=== PATIENT | female | born 1935 | race Hispanic/Latino ===

== ENCOUNTER 2020-07-10 09:46 | Inpatient (IN) | payer MEDICARE ==
[~2020-07-10] VITALS: Ht 165.1 cm; Wt 112.0 kg
[2020-07-10] MEDS ORDERED: ONDANSETRON HCL INJ 2MG/ML 2ML 2 MG/ML VIAL IV STA (10:05)
[2020-07-10] MEDS ORDERED: SODIUM CHLORIDE 0.9% 1000ML 1,000 ML IV STA (10:05)
[2020-07-10] MEDS ORDERED: PANTOPRAZOLE 40 MG 10ML VIAL IV STA (10:05)
[2020-07-10] MEDS ORDERED: DILTIAZEM HCL 5 MG/ML 5 ML VIAL IV STA (10:24)
[2020-07-10] MEDS ORDERED: DILTIAZEM HCL VIAL 5 ML ONE (10:28)
[2020-07-10] MEDS ORDERED: AMLODIPINE BESYL5 MG PO (10:32)
[2020-07-10] MEDS ORDERED: VITAMIN D250 MCG PO (10:32)
[2020-07-10] MEDS ORDERED: HYDROCHLOROTHIA25 MG PO (10:32)
[2020-07-10] MEDS ORDERED: ATORVASTATIN CA10 MG PO (10:32)
[2020-07-10] MEDS ORDERED: AMIODARONE HCL 150MG 100 ML IV STA (10:52)
[2020-07-10] MEDS ORDERED: AMIODARONE HCL 360MG 200 ML IV SCH ×2 (11:00)
[2020-07-10 11:11] LABS: BASOPHILS # (AUTO) 0.1 (0.0-0.1); BASOPHILS % 0.9 % (0.0-1.0); EOSINOPHILS # (AUTO) 0.1 (0.0-0.4); EOSINOPHILS % 0.7 % (0.0-6.0); HEMATOCRIT 46.9 % (34.2-44.1); HEMOGLOBIN 13.6 g/dL (12.0-16.0); LYMPHOCYTES # (AUTO) 2.3 (1.0-3.2); LYMPHOCYTES % 22.3 % (18.0-39.1); MEAN CORPUSCULAR HEMOGLOBIN 23.9 pg (28-32); MEAN CORPUSCULAR VOLUME 82.6 fL (81-99); MONOCYTES # (AUTO) 0.8 (0.2-0.8); MONOCYTES % 7.6 % (4.4-11.3); NEUTROPHILS % 67.6 % (38.7-80.0); PLATELET COUNT 232 x10e3/uL (140-360); RED BLOOD COUNT 5.68 x10e6/uL (3.6-5.1); RED CELL DISTRIBUTION WIDTH 22.4 % (11.7-14.4)
[2020-07-10 11:13] LABS: CLARITY,URINE CLEAR (CLEAR); COLOR,URINE YELLOW (YELLOW); LEUKOCYTE ESTERASE ,URINE NEGATIVE (NEGATIVE); NITRITE,URINE NEGATIVE (NEGATIVE); PROTEIN,URINE DIPSTICK 1+ (NEGATIVE)
[2020-07-10 11:14] LABS: KETONES,URINE TRACE (NEGATIVE); URINE UROBILINOGEN 1 mg/dL (0.2 - 1)
[2020-07-10 11:17] LABS: INR 1.14; PROTHROMBIN TIME 15.3 seconds (11.9-14.5)
[2020-07-10 11:18] LABS: PARTIAL THROMBOPLASTIN TIME 30.1 seconds (23.8-35.5)
[2020-07-10 11:27] LABS: BACTERIA,URINE MANY /HPF; EPITHELIAL CELLS,URINE FEW /LPF
[2020-07-10 11:29] LABS: ALBUMIN 2.6 g/dL (3.5-5.0); ALBUMIN/GLOBULIN RATIO 0.6 (0.8-2.0); ANION GAP 17.9 mmol/L (8-16); CALCIUM 8.7 mg/dL (8.4-10.2); CREATININE, SERUM 1.1 mg/dL (0.57-1.11); MAGNESIUM 2.1 MG/DL (1.3-2.1)
[2020-07-10 11:30] LABS: MUCUS,URINE MANY (RARE)
[2020-07-10] MEDS ORDERED: SODIUM CHLORIDE 0.9% 500ML 500 ML IV ONE (11:30)
[2020-07-10] MEDS ORDERED: AMIODARONE 900MG 500 ML IV SCH ×2 (11:30→17:35)
[2020-07-10] MEDS ORDERED: CALCIUM GLUCONATE 10% INJ 4.65 MEQ in SODIUM CHLORIDE 0.9% 50ML 50 ML IV ONE (11:30)
[2020-07-10 11:31] LABS: TRANSITIONAL EPI CELLS,URINE FEW
[2020-07-10 11:32] LABS: POTASSIUM 2.9 mmol/L (3.5-5.1)
[2020-07-10] MEDS ORDERED: POTASSIUM CHLORIDE 20MEQ/15ML UDC PO STA (11:34)
[2020-07-10 11:36] LABS: CREATINE KINASE MB 0.3 ng/mL (0-5.0)
[2020-07-10] MEDS ORDERED: SODIUM CHLORIDE 0.9% 50ML 50 ML ONE (11:48)
[2020-07-10] MEDS ORDERED: IOPAMIDOL 370 MG/ML 200 ML INFUS..BTL INJ ONE (11:48)
[2020-07-10] MEDS ORDERED: KCL 20 MEQ PACKET/ ORAL SOLN PO ONE (12:00)
[2020-07-10] MEDS ORDERED: CEFTRIAXONE SOD 1 GM in SODIUM CHLORIDE 0.9% 50ML 50 ML IV ONE (12:15)
[2020-07-10] MEDS ORDERED: AZITHROMYCIN 500MG/NS 250 ML 250 ML IV ONE (13:00)
[2020-07-10] MEDS ORDERED: DILTIAZEM HCL 30 MG TAB PO ONE (13:00)
[2020-07-10] MEDS ORDERED: DIGOXIN INJ 0.25 MG/ML 2 ML AMP IV ONE (16:15)
[2020-07-10] MEDS ORDERED: KCL 20MEQ/.9 SOD CHL 1,000 ML IV ONE (16:15)
[2020-07-10] MEDS: ENOXAPARIN SODIUM INJ 100 MG/ML SYR SC SCH (16:29)
[2020-07-10 16:42] LABS: THYROID STIMULATING HORMONE 1.866 uIU/mL (0.350-4.940)
[2020-07-10 17:39] VITALS: BP 127/97
[2020-07-10] MEDS: FAMOTIDINE 20 MG/2 ML VIAL IV SCH (17:56)
[2020-07-10 17:58] VITALS: BP 127/97
[2020-07-10 18:00] VITALS: BP 127/97
[2020-07-10] MEDS ORDERED: POTASSIUM CHLORIDE 20 MEQ TAB CR PO ONE (18:00)
[2020-07-10 19:28] LABS: CREATINE KINASE MB 0.4 ng/mL (0-5.0)
[2020-07-10 20:26] VITALS: BP 132/77
[2020-07-10 22:53] VITALS: BP 132/77
[2020-07-10] MEDS ORDERED: ACETAMINOPHEN 325 MG TAB PO PRN (23:00)
[2020-07-10] MEDS ORDERED: ONDANSETRON HCL INJ 2MG/ML 2ML 2 MG/ML VIAL IV PRN (23:00)
[2020-07-10] MEDS ORDERED: BENZONATATE 100 MG CAP PO PRN (23:00)
[2020-07-11] VITALS (8 sets, daily range): BP systolic 113–131; BP diastolic 63–90
[2020-07-11 00:57] LABS: CREATINE KINASE MB 0.5 ng/mL (0-5.0)
[2020-07-11 05:08] LABS: BASOPHILS # (AUTO) 0.1 (0.0-0.1); BASOPHILS % 0.9 % (0.0-1.0); EOSINOPHILS # (AUTO) 0.1 (0.0-0.4); EOSINOPHILS % 1.8 % (0.0-6.0); HEMATOCRIT 39.2 % (34.2-44.1); LYMPHOCYTES # (AUTO) 0.9 (1.0-3.2); LYMPHOCYTES % 16.8 % (18.0-39.1); MEAN CORPUSCULAR HEMOGLOBIN 24.5 pg (28-32); MEAN CORPUSCULAR HGB CONC 28.1 g/dL (31-35); MEAN CORPUSCULAR VOLUME 87.3 fL (81-99); MONOCYTES # (AUTO) 0.4 (0.2-0.8); NEUTROPHILS # (AUTO) 3.9 (2.1-6.9); NEUTROPHILS % 72.6 % (38.7-80.0); PLATELET COUNT 177 x10e3/uL (140-360); RED BLOOD COUNT 4.49 x10e6/uL (3.6-5.1); RED CELL DISTRIBUTION WIDTH 21.6 % (11.7-14.4)
[2020-07-11 05:50] LABS: ALBUMIN 2.2 g/dL (3.5-5.0); ALBUMIN/GLOBULIN RATIO 0.6 (0.8-2.0); ANION GAP 10.9 mmol/L (8-16); CALCIUM 7.9 mg/dL (8.4-10.2); CHOL/HDL RATIO 2.7 (3.0-3.6); CREATININE, SERUM 0.92 mg/dL (0.57-1.11); POTASSIUM 3.9 mmol/L (3.5-5.1)
[2020-07-11] MEDS: ENOXAPARIN SODIUM INJ 100 MG/ML SYR SC SCH ×2 (05:52→17:28)
[2020-07-11] MEDS: FAMOTIDINE 20 MG/2 ML VIAL IV SCH ×2 (05:52→17:28)
[2020-07-11 06:23] LABS: CREATINE KINASE MB 0.4 ng/mL (0-5.0)
[2020-07-11] MEDS: CHOLECALCIFEROL 1,000 UNIT TAB PO SCH (08:23)
[2020-07-11] MEDS: ASCORBIC ACID 500 MG TAB PO SCH ×2 (08:23→17:28)
[2020-07-11] MEDS: ZINC SULFATE 220 MG CAP PO SCH (08:23)
[2020-07-11] MEDS ORDERED: SODIUM CHLORIDE 0.9% 250ML 250 ML ONE (08:33)
[2020-07-11] MEDS: AZITHROMYCIN 500MG/NS 250 ML 250 ML IV SCH (09:24)
[2020-07-11] MEDS: CEFTRIAXONE SOD 1 GM in SODIUM CHLORIDE 0.9% 50ML 50 ML IV SCH (11:41)
[2020-07-11] MEDS: METOPROLOL TARTRATE 25 MG TAB PO SCH (17:28)
[2020-07-11] MEDS: ATORVASTATIN 10 MG TAB PO SCH (19:49)
[2020-07-11] MEDS: FUROSEMIDE INJ 10 MG/ML 4 ML VIAL IV SCH (19:49)
[2020-07-12] VITALS (9 sets, daily range): BP systolic 103–130; BP diastolic 49–87
[2020-07-12 05:23] LABS: BASOPHILS # (AUTO) 0.1 (0.0-0.1); BASOPHILS % 1.2 % (0.0-1.0); EOSINOPHILS # (AUTO) 0.1 (0.0-0.4); EOSINOPHILS % 3.3 % (0.0-6.0); HEMOGLOBIN 11.4 g/dL (12.0-16.0); LYMPHOCYTES % 23.8 % (18.0-39.1); MEAN CORPUSCULAR HEMOGLOBIN 24.8 pg (28-32); MEAN CORPUSCULAR HGB CONC 28.5 g/dL (31-35); MEAN CORPUSCULAR VOLUME 87.1 fL (81-99); MONOCYTES # (AUTO) 0.4 (0.2-0.8); MONOCYTES % 8.8 % (4.4-11.3); NEUTROPHILS # (AUTO) 2.6 (2.1-6.9); NEUTROPHILS % 61.9 % (38.7-80.0); PLATELET COUNT 195 x10e3/uL (140-360); RED BLOOD COUNT 4.59 x10e6/uL (3.6-5.1); RED CELL DISTRIBUTION WIDTH 21.2 % (11.7-14.4)
[2020-07-12 05:44] LABS: ALANINE AMINOTRANSFERASE 15 IU/L (0-55); ALBUMIN 2.3 g/dL (3.5-5.0); ALBUMIN/GLOBULIN RATIO 0.6 (0.8-2.0); ALKALINE PHOSPHATASE 85 IU/L (40-150); ANION GAP 11.8 mmol/L (8-16); BLOOD UREA NITROGEN 12 mg/dL (7-26); BUN/CREATININE RATIO 15 (6-25); CARBON DIOXIDE 28 mmol/L (22-29); CHLORIDE 105 mmol/L (98-107); EST GLOMERULAR FILTRATION RATE > 60 ML/MIN (60-); GLUCOSE 75 mg/dL (74-118); POTASSIUM 3.8 mmol/L (3.5-5.1); SODIUM 141 mmol/L (136-145)
[2020-07-12] MEDS: FAMOTIDINE 20 MG/2 ML VIAL IV SCH ×2 (05:59→17:09)
[2020-07-12] MEDS: ENOXAPARIN SODIUM INJ 100 MG/ML SYR SC SCH (05:59)
[2020-07-12] MEDS: METOPROLOL TARTRATE 25 MG TAB PO SCH ×4 (05:59→17:09)
[2020-07-12] MEDS: CHOLECALCIFEROL 1,000 UNIT TAB PO SCH (08:28)
[2020-07-12] MEDS: ZINC SULFATE 220 MG CAP PO SCH (08:28)
[2020-07-12] MEDS: FUROSEMIDE INJ 10 MG/ML 4 ML VIAL IV SCH ×2 (08:28→22:15)
[2020-07-12] MEDS: ASCORBIC ACID 500 MG TAB PO SCH ×2 (08:28→16:25)
[2020-07-12] MEDS: AZITHROMYCIN 500MG/NS 250 ML 250 ML IV SCH (09:09)
[2020-07-12] MEDS: CEFTRIAXONE SOD 1 GM in SODIUM CHLORIDE 0.9% 50ML 50 ML IV SCH (11:56)
[2020-07-12] MEDS: ATORVASTATIN 10 MG TAB PO SCH (22:14)
[2020-07-13] VITALS (8 sets, daily range): BP systolic 93–140; BP diastolic 65–78
[2020-07-13] MEDS: METOPROLOL TARTRATE 25 MG TAB PO SCH ×4 (06:00→17:13)
[2020-07-13] MEDS: FAMOTIDINE 20 MG/2 ML VIAL IV SCH ×2 (06:38→17:13)
[2020-07-13] MEDS: FUROSEMIDE INJ 10 MG/ML 4 ML VIAL IV SCH ×2 (08:23→20:52)
[2020-07-13] MEDS: CHOLECALCIFEROL 1,000 UNIT TAB PO SCH ×2 (09:00→14:45)
[2020-07-13] MEDS: ZINC SULFATE 220 MG CAP PO SCH ×2 (09:00→14:45)
[2020-07-13] MEDS: ASCORBIC ACID 500 MG TAB PO SCH ×2 (09:00→17:13)
[2020-07-13] MEDS: AZITHROMYCIN 500MG/NS 250 ML 250 ML IV SCH (10:21)
[2020-07-13] MEDS: CEFTRIAXONE SOD 1 GM in SODIUM CHLORIDE 0.9% 50ML 50 ML IV SCH (12:00)
[2020-07-13] MEDS ORDERED: BUPIVACAINE 0.25% 30ML SDV ONE (12:57)
[2020-07-13] MEDS ORDERED: MORPHINE SULFATE INJ 4 MG/ML INJ 1ML IV PRN (13:00)
[2020-07-13] MEDS ORDERED: FENTANYL CITRATE/PF 100MCG/2 ML INJ ONE (13:43)
[2020-07-13] MEDS: SODIUM CHLORIDE 0.9% 1000ML 1,000 ML IV SCH (14:00)
[2020-07-13] MEDS: ONDANSETRON HCL INJ 2MG/ML 2ML 2 MG/ML VIAL IV PRN (15:14)
[2020-07-13] MEDS ORDERED: LIDOCAINE HCL 2% LOCAL INJ 5 ML SDV VIAL INJ ONE (17:00)
[2020-07-13] MEDS ORDERED: SEVOFLURANE INHAL SOLN 250 ML PEN BTL ONE (17:00)
[2020-07-13] MEDS ORDERED: SUCCINYLCHOLINE CHLORIDE 20 MG/ML 10ML VIAL ONE (17:00)
[2020-07-13] MEDS ORDERED: PROPOFOL IV EMULSION 10 MG/ML 20 ML VIAL ONE (17:00)
[2020-07-13] MEDS ORDERED: LIDOCAINE HCL 2% JELLY 5 ML TUBE ONE (17:00)
[2020-07-13] MEDS ORDERED: DEXAMETHASONE SOD PHOS INJ 4 MG/ML VIAL ONE (17:00)
[2020-07-13] MEDS ORDERED: DIGOXIN INJ 0.25 MG/ML 2 ML AMP ONE (17:00)
[2020-07-13] MEDS ORDERED: PHENYLEPHRINE HCL 1% 10 MG/ML VIAL ONE (17:00)
[2020-07-13] MEDS ORDERED: ONDANSETRON HCL INJ 2MG/ML 2ML 2 MG/ML VIAL ONE (17:00)
[2020-07-13] MEDS: ATORVASTATIN 10 MG TAB PO SCH (20:42)
[2020-07-14] MEDS: SODIUM CHLORIDE 0.9% 1000ML 1,000 ML IV SCH ×3 (00:33→18:05)
[2020-07-14] MEDS: HYDROCODONE/APAP 5MG-325MG TAB PO PRN ×2 (00:40→18:05)
[2020-07-14] MEDS: METOPROLOL TARTRATE 25 MG TAB PO SCH ×5 (00:47→23:45)
[2020-07-14 05:12] VITALS: BP 112/67
[2020-07-14] MEDS: FAMOTIDINE 20 MG/2 ML VIAL IV SCH ×2 (05:25→17:22)
[2020-07-14 08:22] VITALS: BP 141/76
[2020-07-14] MEDS: APIXABAN 5 MG TABLET PO SCH ×2 (09:09→17:22)
[2020-07-14] MEDS: ASCORBIC ACID 500 MG TAB PO SCH ×2 (09:09→17:22)
[2020-07-14] MEDS: ZINC SULFATE 220 MG CAP PO SCH (09:09)
[2020-07-14] MEDS: FUROSEMIDE INJ 10 MG/ML 4 ML VIAL IV SCH ×2 (09:09→20:13)
[2020-07-14] MEDS: CHOLECALCIFEROL 1,000 UNIT TAB PO SCH (09:09)
[2020-07-14 09:15] VITALS: BP 141/76
[2020-07-14] MEDS: AZITHROMYCIN 500MG/NS 250 ML 250 ML IV SCH (10:15)
[2020-07-14 12:04] VITALS: BP 100/63
[2020-07-14] MEDS: CEFTRIAXONE SOD 1 GM in SODIUM CHLORIDE 0.9% 50ML 50 ML IV SCH (12:19)
[2020-07-14 16:01] VITALS: BP 112/72
[2020-07-14] MEDS ORDERED: METOPROLOL TARTRATE 25 MG TAB PO SCH (19:00)
[2020-07-14 20:00] VITALS: BP 115/64
[2020-07-14] MEDS: ATORVASTATIN 10 MG TAB PO SCH (20:13)
[2020-07-15] VITALS (8 sets, daily range): BP systolic 92–123; BP diastolic 51–84
[2020-07-15] MEDS: FAMOTIDINE 20 MG/2 ML VIAL IV SCH ×2 (05:04→17:43)
[2020-07-15] MEDS: FUROSEMIDE INJ 10 MG/ML 4 ML VIAL IV SCH ×2 (09:55→21:22)
[2020-07-15] MEDS: ZINC SULFATE 220 MG CAP PO SCH (09:55)
[2020-07-15] MEDS: AZITHROMYCIN 500MG/NS 250 ML 250 ML IV SCH (09:55)
[2020-07-15] MEDS: CHOLECALCIFEROL 1,000 UNIT TAB PO SCH (09:55)
[2020-07-15] MEDS: APIXABAN 5 MG TABLET PO SCH ×2 (09:55→17:43)
[2020-07-15] MEDS: ASCORBIC ACID 500 MG TAB PO SCH ×2 (09:55→17:43)
[2020-07-15] MEDS ORDERED: MAGNESIUM/ALUMINUM/SIMETHICONE 30 ML UDC PO PRN (10:45)
[2020-07-15] MEDS: METOPROLOL TARTRATE 25 MG TAB PO SCH (12:00)
[2020-07-15] MEDS: CEFTRIAXONE SOD 1 GM in SODIUM CHLORIDE 0.9% 50ML 50 ML IV SCH (13:00)
[2020-07-15] MEDS: ONDANSETRON HCL INJ 2MG/ML 2ML 2 MG/ML VIAL IV PRN (13:02)
[2020-07-15] MEDS: ATORVASTATIN 10 MG TAB PO SCH (21:22)
[2020-07-16] VITALS (8 sets, daily range): BP systolic 107–125; BP diastolic 63–89
[2020-07-16] MEDS: METOPROLOL TARTRATE 25 MG TAB PO SCH ×2 (00:02→14:30)
[2020-07-16] MEDS: FAMOTIDINE 20 MG/2 ML VIAL IV SCH ×2 (06:00→16:59)
[2020-07-16 06:30] LABS: BASOPHILS # (AUTO) 0.1 (0.0-0.1); BASOPHILS % 1.4 % (0.0-1.0); EOSINOPHILS # (AUTO) 0.2 (0.0-0.4); EOSINOPHILS % 2.6 % (0.0-6.0); HEMATOCRIT 42.6 % (34.2-44.1); LYMPHOCYTES % 15.7 % (18.0-39.1); MEAN CORPUSCULAR HEMOGLOBIN 23.8 pg (28-32); MEAN CORPUSCULAR HGB CONC 28.2 g/dL (31-35); MEAN CORPUSCULAR VOLUME 84.5 fL (81-99); MONOCYTES # (AUTO) 0.7 (0.2-0.8); MONOCYTES % 11.3 % (4.4-11.3); NEUTROPHILS # (AUTO) 4.4 (2.1-6.9); NEUTROPHILS % 67.5 % (38.7-80.0); PLATELET COUNT 241 x10e3/uL (140-360); RED BLOOD COUNT 5.04 x10e6/uL (3.6-5.1); RED CELL DISTRIBUTION WIDTH 20.4 % (11.7-14.4)
[2020-07-16 07:11] LABS: ANION GAP 16.1 mmol/L (8-16); BLOOD UREA NITROGEN 9 mg/dL (7-26); BUN/CREATININE RATIO 13 (6-25); CALCIUM 7.9 mg/dL (8.4-10.2); CARBON DIOXIDE 31 mmol/L (22-29); CHLORIDE 99 mmol/L (98-107); CREATININE, SERUM 0.72 mg/dL (0.57-1.11); EST GLOMERULAR FILTRATION RATE > 60 ML/MIN (60-); GLUCOSE 88 mg/dL (74-118); POTASSIUM 3.1 mmol/L (3.5-5.1); SODIUM 143 mmol/L (136-145)
[2020-07-16] MEDS ORDERED: POTASSIUM CHLORIDE 10MEQ EA PO ONE (07:45)
[2020-07-16] MEDS: FUROSEMIDE INJ 10 MG/ML 4 ML VIAL IV SCH ×2 (09:00→09:16)
[2020-07-16] MEDS: ZINC SULFATE 220 MG CAP PO SCH (09:16)
[2020-07-16] MEDS: APIXABAN 5 MG TABLET PO SCH ×2 (09:16→16:59)
[2020-07-16] MEDS: AZITHROMYCIN 250 MG TAB PO SCH (09:16)
[2020-07-16] MEDS: CHOLECALCIFEROL 1,000 UNIT TAB PO SCH (09:16)
[2020-07-16] MEDS: ASCORBIC ACID 500 MG TAB PO SCH ×2 (09:16→16:59)
[2020-07-16] MEDS: CEFTRIAXONE SOD 1 GM in SODIUM CHLORIDE 0.9% 50ML 50 ML IV SCH (14:50)
[2020-07-16] MEDS: ATORVASTATIN 10 MG TAB PO SCH (20:53)
[2020-07-17] VITALS (8 sets, daily range): BP systolic 90–132; BP diastolic 43–84
[2020-07-17] MEDS: METOPROLOL TARTRATE 25 MG TAB PO SCH ×3 (00:03→23:44)
[2020-07-17] MEDS: FAMOTIDINE 20 MG/2 ML VIAL IV SCH ×2 (06:00→17:06)
[2020-07-17 06:45] LABS: ANION GAP 15.1 mmol/L (8-16); BLOOD UREA NITROGEN 12 mg/dL (7-26); BUN/CREATININE RATIO 14 (6-25); CALCIUM 8.3 mg/dL (8.4-10.2); CARBON DIOXIDE 32 mmol/L (22-29); CHLORIDE 99 mmol/L (98-107); CREATININE, SERUM 0.83 mg/dL (0.57-1.11); EST GLOMERULAR FILTRATION RATE > 60 ML/MIN (60-); GLUCOSE 102 mg/dL (74-118); POTASSIUM 3.1 mmol/L (3.5-5.1); SODIUM 143 mmol/L (136-145)
[2020-07-17] MEDS: AZITHROMYCIN 250 MG TAB PO SCH (09:35)
[2020-07-17] MEDS: ZINC SULFATE 220 MG CAP PO SCH (09:35)
[2020-07-17] MEDS: ASCORBIC ACID 500 MG TAB PO SCH ×2 (09:35→16:56)
[2020-07-17] MEDS: APIXABAN 5 MG TABLET PO SCH ×2 (09:35→16:56)
[2020-07-17] MEDS: CHOLECALCIFEROL 1,000 UNIT TAB PO SCH (09:35)
[2020-07-17] MEDS: FUROSEMIDE INJ 10 MG/ML 4 ML VIAL IV SCH (09:35)
[2020-07-17] MEDS: POTASSIUM CHLORIDE 10MEQ EA PO SCH ×2 (09:51→13:00)
[2020-07-17] MEDS: ONDANSETRON HCL INJ 2MG/ML 2ML 2 MG/ML VIAL IV PRN (11:44)
[2020-07-17] MEDS: CEFTRIAXONE SOD 1 GM in SODIUM CHLORIDE 0.9% 50ML 50 ML IV SCH (11:44)
[2020-07-17] MEDS: ATORVASTATIN 10 MG TAB PO SCH (21:33)
[2020-07-18] VITALS (7 sets, daily range): BP systolic 97–136; BP diastolic 55–93
[2020-07-18 05:21] LABS: BASOPHILS # (AUTO) 0.1 (0.0-0.1); BASOPHILS % 2.2 % (0.0-1.0); EOSINOPHILS # (AUTO) 0.2 (0.0-0.4); EOSINOPHILS % 4.6 % (0.0-6.0); HEMATOCRIT 42.5 % (34.2-44.1); HEMOGLOBIN 11.9 g/dL (12.0-16.0); LYMPHOCYTES # (AUTO) 1.1 (1.0-3.2); LYMPHOCYTES % 22.6 % (18.0-39.1); MEAN CORPUSCULAR VOLUME 85.7 fL (81-99); MONOCYTES # (AUTO) 0.6 (0.2-0.8); MONOCYTES % 11.2 % (4.4-11.3); NEUTROPHILS # (AUTO) 2.9 (2.1-6.9); NEUTROPHILS % 57.4 % (38.7-80.0); PLATELET COUNT 244 x10e3/uL (140-360); RED BLOOD COUNT 4.96 x10e6/uL (3.6-5.1); RED CELL DISTRIBUTION WIDTH 20.2 % (11.7-14.4)
[2020-07-18 05:39] LABS: ANION GAP 13.6 mmol/L (8-16); CALCIUM 8.5 mg/dL (8.4-10.2); CREATININE, SERUM 0.94 mg/dL (0.57-1.11); POTASSIUM 3.6 mmol/L (3.5-5.1)
[2020-07-18 05:53] LABS: MAGNESIUM 1.9 MG/DL (1.3-2.1)
[2020-07-18] MEDS: FAMOTIDINE 20 MG/2 ML VIAL IV SCH ×2 (06:16→17:20)
[2020-07-18] MEDS: ASCORBIC ACID 500 MG TAB PO SCH ×2 (09:15→17:20)
[2020-07-18] MEDS: APIXABAN 5 MG TABLET PO SCH ×2 (09:15→17:20)
[2020-07-18] MEDS: CHOLECALCIFEROL 1,000 UNIT TAB PO SCH (09:15)
[2020-07-18] MEDS: FUROSEMIDE INJ 10 MG/ML 4 ML VIAL IV SCH (09:15)
[2020-07-18] MEDS: ZINC SULFATE 220 MG CAP PO SCH (09:15)
[2020-07-18] MEDS: AZITHROMYCIN 250 MG TAB PO SCH (09:15)
[2020-07-18] MEDS: METOPROLOL TARTRATE 25 MG TAB PO SCH (12:00)
[2020-07-18] MEDS: CEFTRIAXONE SOD 1 GM in SODIUM CHLORIDE 0.9% 50ML 50 ML IV SCH (12:45)
[2020-07-18] MEDS: HYDROCODONE/APAP 5MG-325MG TAB PO PRN (18:21)
[2020-07-18] MEDS: ATORVASTATIN 10 MG TAB PO SCH (20:54)
[2020-07-19 00:12] VITALS: BP 118/77
[2020-07-19] MEDS: METOPROLOL TARTRATE 25 MG TAB PO SCH (00:24)
[2020-07-19 04:20] VITALS: BP 107/66
[2020-07-19] MEDS: FAMOTIDINE 20 MG/2 ML VIAL IV SCH (05:50)
[2020-07-19 07:30] VITALS: BP 113/80
[2020-07-19] MEDS: ASCORBIC ACID 500 MG TAB PO SCH (08:30)
[2020-07-19] MEDS: AZITHROMYCIN 250 MG TAB PO SCH (08:30)
[2020-07-19] MEDS: FUROSEMIDE INJ 10 MG/ML 4 ML VIAL IV SCH (08:30)
[2020-07-19] MEDS: ZINC SULFATE 220 MG CAP PO SCH (08:30)
[2020-07-19] MEDS: APIXABAN 5 MG TABLET PO SCH (08:30)
[2020-07-19 08:50] VITALS: BP 113/80
[2020-07-19] MEDS: CHOLECALCIFEROL 1,000 UNIT TAB PO SCH (09:14)
== END 2020-07-19 10:49 | disposition home or self-care (01) | DRG 987 ==
LOC: ER 10:35 → ERHOLD 15:58 → IMCU 17:41
PROVIDERS: ADMIT Internal Medicine; ATTEND Internal Medicine
PROC: 8E0ZXY6 Isolation (ICD-10-PCS; 2020-07-10)
PROC: 0WQF0ZZ Repair Abdominal Wall, Open Approach (ICD-10-PCS; principal; 2020-07-13 12:00)
DX: U07.1 COVID-19 (principal); J12.82 Pneumonia due to coronavirus disease 2019; Z68.41 Body mass index [BMI] 40.0-44.9, adult; K42.0 Umbilical hernia with obstruction, without gangrene; I10 Essential (primary) hypertension; E78.5 Hyperlipidemia, unspecified; I48.91 Unspecified atrial fibrillation; I25.10 Atherosclerotic heart disease of native coronary artery without angina pectoris; E66.9 Obesity, unspecified; E86.0 Dehydration
CPT/HCPCS: 36415; 71045; 71260; 74177; 80048; 80053; 80061; 81001; 82150; 82270; 82550; 82553; 83690; 83735; 83880; 84100; 84436; 84443; 84479; 84484; 85025; 85610; 85730; 87040; 87086; 93005; 99251; 99285; J0330; J0456; J0610; J0696; J1100; J1160; J1650; J1940; J2001; J2370; J2405; J3010; J7030; J7040; J7050; Q9967; U0002

== ENCOUNTER → 2020-09-26 | Outpatient (CLI) | payer MEDICARE ==
[~2020-09-26] MED LIST: AMLODIPINE BESYL5 MG PO; ATORVASTATIN CA10 MG PO; HYDROCHLOROTHIA25 MG PO; REGADENOSON 0.4 MG/5 ML SYR IV ONE; VITAMIN D250 MCG PO
== END ==
LOC: NM 09:24
PROVIDERS: ATTEND Internal Medicine Interventional Cardiology
DX: I20.8 Other forms of angina pectoris (principal)
CPT/HCPCS: 78452; 93017; A9502; J2785

== ENCOUNTER 2021-02-16 10:30 | Inpatient (IN) | payer MEDICARE ==
[~2021-02-16] VITALS: Ht 165.1 cm; Wt 112.0 kg
[2021-02-16] VITALS (8 sets, daily range): BP systolic 74–154; BP diastolic 46–98
[~2021-02-16 10:30] MED LIST changes: -REGADENOSON 0.4 MG/5 ML SYR IV ONE
[2021-02-16 10:59] LABS: BASOPHILS # (AUTO) 0.1 (0.0-0.1); BASOPHILS % 0.5 % (0.0-1.0); EOSINOPHILS % 0.2 % (0.0-6.0); LYMPHOCYTES # (AUTO) 1.3 (1.0-3.2); LYMPHOCYTES % 9.9 % (18.0-39.1); MEAN CORPUSCULAR HEMOGLOBIN 23.6 pg (28-32); MEAN CORPUSCULAR HGB CONC 23.4 g/dL (31-35); MEAN CORPUSCULAR VOLUME 101.1 fL (81-99); MONOCYTES # (AUTO) 1.2 (0.2-0.8); MONOCYTES % 9.2 % (4.4-11.3); NEUTROPHILS # (AUTO) 9.9 (2.1-6.9); NEUTROPHILS % 75.5 % (38.7-80.0); PLATELET COUNT 218 x10e3/uL (140-360); RED BLOOD COUNT 1.82 x10e6/uL (3.6-5.1); RED CELL DISTRIBUTION WIDTH 27.9 % (11.7-14.4)
[2021-02-16 11:09] LABS: HEMATOCRIT 18.4 % (34.2-44.1); HEMOGLOBIN 4.3 g/dL (12.0-16.0)
[2021-02-16 11:15] LABS: ALBUMIN 2.5 g/dL (3.5-5.0); ALBUMIN/GLOBULIN RATIO 1.1 (0.8-2.0); ANION GAP 30.2 mmol/L (8-16); CALCIUM 8.9 mg/dL (8.4-10.2); CREATININE, SERUM 1.12 mg/dL (0.57-1.11)
[2021-02-16] MEDS ORDERED: SODIUM CHLORIDE 0.9% 250ML 250 ML IV ONE (11:15)
[2021-02-16 11:37] LABS: POTASSIUM 6.2 mmol/L (3.5-5.1)
[2021-02-16] MEDS ORDERED: DEXTROSE 25% INJ 10 ML SYR IV ONE (11:45)
[2021-02-16] MEDS ORDERED: PIPERACILLIN/TAZOBACTAM 4.5 GM in SODIUM CHLORIDE 0.9% 100 ML IV ONE (12:00)
[2021-02-16 12:07] LABS: CLARITY,URINE CLEAR (CLEAR); COLOR,URINE YELLOW (YELLOW)
[2021-02-16 12:08] LABS: KETONES,URINE 1+ (NEGATIVE); LEUKOCYTE ESTERASE ,URINE NEGATIVE (NEGATIVE); NITRITE,URINE NEGATIVE (NEGATIVE); PROTEIN,URINE DIPSTICK NEGATIVE (NEGATIVE); URINE UROBILINOGEN 1 mg/dL (0.2 - 1)
[2021-02-16] MEDS ORDERED: DEXTROSE 50% SYRINGE 50 ML IV ONE ×3 (12:15→17:07)
[2021-02-16] MEDS ORDERED: OCTREOTIDE ACETATE 500 MCG in SODIUM CHLORIDE 0.9% 250ML 250 ML IV SCH (12:15)
[2021-02-16] MEDS ORDERED: IOPAMIDOL 370 MG/ML 200 ML INFUS..BTL INJ ONE ×2 (12:21→18:37)
[2021-02-16] MEDS ORDERED: SODIUM CHLORIDE 0.9% 50ML 50 ML ONE ×2 (12:21→18:37)
[2021-02-16] MEDS: SODIUM CHLORIDE 0.9% 1000ML 1,000 ML IV SCH ×2 (12:29→12:34)
[2021-02-16 12:33] LABS: BACTERIA,URINE FEW /HPF; EPITHELIAL CELLS,URINE FEW /LPF; RBC,URINE 0-5 /HPF (0-5); WBC,URINE (MAN) 0-5 /HPF (0-5)
[2021-02-16] MEDS: Pantoprazole IV 40 MG in SODIUM CHLORIDE 0.9% 50ML 50 ML IV SCH ×2 (12:41→13:11)
[2021-02-16] MEDS ORDERED: OCTREOTIDE ACETATE 0.05 MG/ML AMP IV SCH (12:45)
[2021-02-16] MEDS ORDERED: OCTREOTIDE ACETATE 0.05 MG/ML AMP IV ONE (13:00)
[2021-02-16] MEDS ORDERED: LACTULOSE SYRUP 20 GM/30 ML UDC RC ONE (13:00)
[2021-02-16 13:28] LABS: INR 7.15; PROTHROMBIN TIME 62.3 seconds (11.9-14.5)
[2021-02-16] MEDS ORDERED: PHYTONADIONE 10 MG/ML AMP IV ONE (13:30)
[2021-02-16] MEDS ORDERED: CEFEPIME 1 GM in SODIUM CHLORIDE 0.9% 50ML 50 ML IV SCH (16:00)
[2021-02-16] MEDS ORDERED: ALBUTEROL SULF 0.083% NEB SOLN 3 ML NEB NEB STA (16:51)
[2021-02-16] MEDS ORDERED: DEXTROSE 50% SYRINGE 50 ML IV STA ×2 (16:51)
[2021-02-16] MEDS ORDERED: FUROSEMIDE INJ 10 MG/ML 4 ML VIAL IV ONE (17:00)
[2021-02-16] MEDS ORDERED: METRONIDAZOLE 500MG/NS 100ML 100 ML IV SCH (17:00)
[2021-02-16] MEDS ORDERED: INSULIN REGULAR, HUMAN 100 UNIT/1 ML IV ONE (17:00)
[2021-02-16] MEDS ORDERED: CALCIUM GLUCONATE 10% INJ 4.65 MEQ in SODIUM CHLORIDE 0.9% 50ML 50 ML IV ONE (17:00)
[2021-02-16] MEDS ORDERED: FUROSEMIDE INJ 10 MG/ML 4 ML VIAL ONE (17:07)
[2021-02-16] MEDS ORDERED: CALCIUM CHLORIDE 13.6 MEQ in SODIUM CHLORIDE 0.9% 100 ML 100 ML IV ONE (17:30)
[2021-02-16 17:54] LABS: ABG HCO3 4 mmol/L (22-26); ABG PCO2 19 mmHg (35-45); ABG PH 6.98 (7.35-7.45); ABG PO2 114 mmHg (80-105); ABG TCO2 5
[2021-02-16] MEDS ORDERED: LORAZEPAM INJ 2 MG/ML VIAL IV ONE (18:00)
[2021-02-16] MEDS ORDERED: SODIUM CHLORIDE 0.9% 250ML 250 ML ONE (22:00)
[2021-02-16] MEDS ORDERED: SODIUM BICARBONATE 8.4% SYRING 150 ML ONE (23:06)
[2021-02-16] MEDS ORDERED: SODIUM CHLORIDE 0.9% 250ML 500 ML ONE (23:19)
[2021-02-16] MEDS ORDERED: NOREPINEPHRINE 8 MG/D5W 250 ML 250 ML ONE (23:47)
[2021-02-16] MEDS ORDERED: SODIUM BICARBONATE 8.4% SYRING 50 ML ONE (23:57)
[2021-02-16] MEDS ORDERED: DEXTROSE 5% 1,000 ML IV ONE (23:58)
[2021-02-17] MEDS ORDERED: SODIUM CHLORIDE 0.9% 250ML 500 ML ONE (00:17)
== END 2021-02-17 01:00 | disposition expired | DRG 871 ==
LOC: ER 10:34 → ERHOLD 12:30 → ICU 17:45
PROVIDERS: ADMIT Internal Medicine; ATTEND Internal Medicine
PROC: 02HV33Z Insertion of Infusion Device into Superior Vena Cava, Percutaneous Approach (ICD-10-PCS; principal; 2021-02-16)
PROC: 0BH18EZ Insertion of Endotracheal Airway into Trachea, Via Natural or Artificial Opening Endoscopic (ICD-10-PCS; 2021-02-16)
PROC: 5A1935Z Respiratory Ventilation, Less than 24 Consecutive Hours (ICD-10-PCS; 2021-02-16)
PROC: 30233K1 Transfusion of Nonautologous Frozen Plasma into Peripheral Vein, Percutaneous Approach (ICD-10-PCS; 2021-02-16)
PROC: 30233N1 Transfusion of Nonautologous Red Blood Cells into Peripheral Vein, Percutaneous Approach (ICD-10-PCS; 2021-02-16)
DX: A41.9 Sepsis, unspecified organism (principal); K72.00 Acute and subacute hepatic failure without coma; R65.21 Severe sepsis with septic shock; E87.2 Acidosis; D62 Acute posthemorrhagic anemia; D68.8 Other specified coagulation defects; K92.2 Gastrointestinal hemorrhage, unspecified; E78.5 Hyperlipidemia, unspecified; E80.6 Other disorders of bilirubin metabolism; I46.9 Cardiac arrest, cause unspecified; I48.91 Unspecified atrial fibrillation; Z79.01 Long term (current) use of anticoagulants; K72.10 Chronic hepatic failure without coma; E87.5 Hyperkalemia; K76.0 Fatty (change of) liver, not elsewhere classified; Z20.822 Contact with and (suspected) exposure to COVID-19
CPT/HCPCS: 36415; 36569; 36600; 51700; 70450; 71045; 74177; 76705; 80053; 81001; 82140; 82805; 82948; 83605; 85025; 85610; 86850; 86900; 86920; 87040; 87071; 87205; 93005; 94002; 94644; 99285; J0692; J1940; J2060; J2353; J2354; J2543; J3430; J7030; J7050; J7070; J7799; P9016; P9017; Q9967; U0002